=== PATIENT | female | born 1995 | race Caucasian/White ===

== ENCOUNTER → 2017-01-02 | Outpatient (CLI) | payer BC ==
[2017-01-05 01:58] LABS: CHLAMYDIA TRACH RNA*** NOT DETECTED (NOT DETECTED); GC (NEIS GONORRHOEAE)RNA** NOT DETECTED (NOT DETECTED)
== END | disposition home or self-care (01) ==
LOC: C.LABSPEC 17:51
PROVIDERS: ATTEND Obstetrics & Gynecology
DX: N93.0 Postcoital and contact bleeding (principal)

== ENCOUNTER → 2017-06-13 | Outpatient (CLI) | payer BC ==
--- NOTE | 2017-06-14 09:50 | PULMONARY FUNCTION TEST ---
CLINICAL DATA: 21-year-old female with height of 62 inches and a weight of [address] Myles Hale for evaluation of shortness of breath. Spirometry pre-bronchodilator was performed. Prebronchodilator spirometry demonstrates very mild small airways obstruction. FVC was 124% of predicted. FEV1 was 105% of predicted. [id number] was 77% of predicted. IMPRESSION: Very mild small airway obstruction manifested by a slight reduction in [id number]. This may represent asthma. Treatment with either inhaled bronchodilators or inhaled steroids may be of benefit. Clinical correlation is needed.
== END | disposition home or self-care (01) ==
LOC: C.RC 09:15
PROVIDERS: ATTEND Family Medicine
DX: R06.2 Wheezing (principal)

== ENCOUNTER → 2017-11-21 | Outpatient (CLI) | payer BC | END | disposition home or self-care (01) | LOC: C.LABSPEC 13:23 | PROVIDERS: ATTEND Physician Assistant | DX: Z01.419 Encounter for gynecological examination (general) (routine) without abnormal findings (principal) ==

== ENCOUNTER → 2018-03-03 | Outpatient (CLI) | payer BC | END | disposition home or self-care (01) | LOC: C.LABSPEC 17:37 | PROVIDERS: ATTEND Physician Assistant | DX: A74.9 Chlamydial infection, unspecified (principal) ==